=== PATIENT | male | born 1980 | race Hispanic/Latino ===

== ENCOUNTER 2022-10-12 10:54 | Inpatient (IN) | payer OTHER ==
[~2022-10-12] VITALS: Ht 167.6 cm; Wt 138.9 kg
[2022-10-12 11:16] LABS: APPEARANCE,URINE CLOUDY (CLEAR); BILIRUBIN,URINE SMALL mg/dL (NEGATIVE); COLOR,URINE AMBER (YELLOW); GLUCOSE, URINE (UA) NEGATIVE (NEGATIVE); KETONES,URINE 5 mg/dL (NEGATIVE); LEUKOCYTE ESTERASE ,URINE SMALL Leu/uL (NEGATIVE); NITRATE,URINE NEGATIVE (NEGATIVE); OCCULT BLOOD,URINE LARGE (NEGATIVE); PH,URINE 5.5 (5.0-8.0); PROTEIN,URINE >=300 mg/dL (NEGATIVE); UROBILINOGEN,URINE >=8.0 mg/dL (0.2-1.0)
[2022-10-12 11:21] LABS: BASOPHILS # (AUTO) 0.02 K/uL (0.00-0.20); BASOPHILS % (AUTO) 0.1 % (0.0-5.0); HEMATOCRIT 41.9 % (42-54); IMMATURE GRANULOCYTE ABSOLUTE 0.05 K/uL (0-1); LYMPHOCYTES # (AUTO) 0.2 K/uL (1.0-4.8); LYMPHOCYTES % (AUTO) 1.4 % (21.0-51.0); MEAN CORPUSCULAR HEMOGLOBIN 29.3 pg (27.0-33.0); MEAN CORPUSCULAR HGB CONC 34.4 g/dL (32.0-36.0); MEAN CORPUSCULAR VOLUME 85.3 fL (79-99); MONOCYTES # (AUTO) 0.4 K/uL (0.1-1.0); MONOCYTES % (AUTO) 2.7 % (3.0-13.0); NEUTROPHILS % (AUTO) 95.5 % (40.0-77.0); PLATELET COUNT (AUTO) 159 K/uL (130-400); RED BLOOD CELL COUNT(AUTO) 4.91 MIL/uL (4.50-6.20); RED CELL DISTRIBUTION WIDTH 13.1 % (11.0-15.5); WHITE BLOOD COUNT (AUTO) 14.7 K/uL (4.8-10.8)
[2022-10-12 11:23] LABS: ADD UA MICROSCOPIC YES
[2022-10-12 11:25] LABS: SARS-CoV-2, RNA, NAAT NEGATIVE SARS CoV-2 (NEGATIVE)
[2022-10-12 11:30] LABS: CREATININE 2.5 mg/dL (0.5-1.5); POTASSIUM 3.4 mmol/L (3.5-5.1)
[2022-10-12 11:30] LABS: INFLUENZA TYPE A Negative For Type A (NEGATIVE); INFLUENZA TYPE B Negative For Type B (NEGATIVE)
[2022-10-12 11:34] LABS: ALBUMIN 3.3 g/dL (3.5-5.0); BILIRUBIN,TOTAL 1.1 mg/dL (0.2-1.0); TOTAL PROTEIN, SERUM 7.4 g/dL (6.0-8.3)
[2022-10-12 11:47] LABS: BACTERIA,URINE Moderate /HPF (None Seen); SQUAMOUS EPITHELIAL CELL,UR Few /HPF (0-2); WBC,URINE 51-100 /HPF (0-1)
[2022-10-12] MEDS: 0.9%NACL 1000ML 1,000 ML IV SCH ×3 (12:21→21:19)
[2022-10-12] MEDS ORDERED: CEFTRIAXONE 2GM VIAL IVPB ONE (12:30)
[2022-10-12] MEDS ORDERED: DiphenhydrAMINE HCL 50 MG/ML VIAL IV PRN (13:30)
[2022-10-12] MEDS ORDERED: MAG/ALUM/SIMETH 30 ML UDCUP PO PRN (13:30)
[2022-10-12] MEDS ORDERED: ONDANSETRON 4MG INJ IV PRN (13:30)
[2022-10-12] MEDS ORDERED: HYDROMORPHONE 1 MG INJ IV PRN (13:30)
[2022-10-12] MEDS ORDERED: MAGNESIUM 2GM PREMIX 50ML 50 ML IV PRN (13:30)
[2022-10-12] MEDS ORDERED: POTASSIUM CHLORIDE 20MEQ/100ML 100 ML IV PRN (13:30)
[2022-10-12] MEDS ORDERED: HYDROCODONE/ACETAMINOPHEN 5/325 MG TAB PO PRN ×2 (13:30)
[2022-10-12] MEDS ORDERED: GUAIFENESIN-DM 200/20 MG 10 ML PO PRN (13:30)
[2022-10-12] MEDS ORDERED: LACTULOSE 20 GM/30 ML UDCUP PO PRN (13:30)
[2022-10-12] MEDS ORDERED: NITROGLYCERIN 0.4 MG SL TAB SL PRN (13:30)
[2022-10-12] MEDS ORDERED: ACETAMINOPHEN 325 MG TAB PO PRN ×2 (13:30)
[2022-10-12] MEDS ORDERED: KCL 20 MEQ ERTAB PO PRN (13:30)
[2022-10-12] MEDS ORDERED: DIPHENHYDRAMINE HCL 25 MG CAPSULE PO PRN (13:30)
[2022-10-12] MEDS ORDERED: CEFTRIAXONE 1G VIAL IV SCH (13:30)
[2022-10-12] MEDS ORDERED: POTASSIUM CHLORIDE 10% ELIXIR 20 MEQ/15 ML UDCUP PO PRN (13:30)
[2022-10-12] MEDS: HEPARIN 5,000 UNIT VIAL SQ SCH ×2 (14:12→20:39)
[2022-10-12 14:16] LABS: AMPHET/METH SCREEN,URINE NEGATIVE (NEGATIVE); BARBITURATE SCREEN, URINE NEGATIVE (NEGATIVE); BENZODIAZEPINES SCREEN,URINE NEGATIVE (NEGATIVE); CANNABINOID SCREEN,URINE NEGATIVE (NEGATIVE); COCAINE SCREEN,URINE NEGATIVE (NEGATIVE); OPIATE SCREEN,URINE NEGATIVE (NEGATIVE); PHENCYCLIDINE SCREEN,URINE NEGATIVE (NEGATIVE)
[2022-10-12 14:29] LABS: THYROID STIMULATING HORMONE 0.73 uIU/mL (0.36-3.74)
[2022-10-12] MEDS: FAMOTIDINE 20MG TAB PO SCH (19:32)
[2022-10-12] MEDS: FAMOTIDINE 20MG VIAL IV SCH (20:32)
[2022-10-12 22:15] VITALS: BP 108/66; PULSE 87; RESP 20; O2SAT 97
[2022-10-13] VITALS (7 sets, daily range): BP systolic 111–124; BP diastolic 61–73; PULSE 73–83; RESP 16–20; O2SAT 97
[2022-10-13] MEDS: 0.9%NACL 1000ML 1,000 ML IV SCH ×4 (03:29→22:50)
[2022-10-13 05:49] LABS: BASOPHILS # (AUTO) 0.01 K/uL (0.00-0.20); BASOPHILS % (AUTO) 0.1 % (0.0-5.0); EOSINOPHILS # (AUTO) 0.02 K/uL (0.00-0.70); EOSINOPHILS % (AUTO) 0.2 % (0.0-8.0); HEMATOCRIT 38.5 % (42-54); IMMATURE GRANULOCYTE ABSOLUTE 0.03 K/uL (0-1); LYMPHOCYTES # (AUTO) 0.5 K/uL (1.0-4.8); LYMPHOCYTES % (AUTO) 5.3 % (21.0-51.0); MEAN CORPUSCULAR HGB CONC 33.2 g/dL (32.0-36.0); MEAN CORPUSCULAR VOLUME 87.3 fL (79-99); MONOCYTES # (AUTO) 0.9 K/uL (0.1-1.0); MONOCYTES % (AUTO) 9.2 % (3.0-13.0); NEUTROPHILS # (AUTO) 8.4 K/uL (1.8-7.7); NEUTROPHILS % (AUTO) 84.9 % (40.0-77.0); PLATELET COUNT (AUTO) 142 K/uL (130-400); RED BLOOD CELL COUNT(AUTO) 4.41 MIL/uL (4.50-6.20); RED CELL DISTRIBUTION WIDTH 13.4 % (11.0-15.5); WHITE BLOOD COUNT (AUTO) 9.9 K/uL (4.8-10.8)
[2022-10-13 06:10] LABS: CREATININE 2.1 mg/dL (0.5-1.5); MAGNESIUM 1.6 mg/dL (1.80-2.40); PHOSPHORUS 2.7 mg/dL (2.5-4.9); POTASSIUM 4.1 mmol/L (3.5-5.1)
[2022-10-13 06:24] LABS: % IRON SATURATION 8.1 % (30-44)
[2022-10-13] MEDS ORDERED: MEROPENEM 500 MG in 0.9%NACL 100ML 100 ML IV SCH (07:00)
[2022-10-13] MEDS: IRON SUCROSE COMPLEX 300 MG in 0.9% NACL 250ML 250 ML IV SCH (09:17)
[2022-10-13] MEDS: HEPARIN 5,000 UNIT VIAL SQ SCH ×3 (09:24→22:13)
[2022-10-13] MEDS ORDERED: COMPOUND IV MISC 1 EACH IVSOLN MISC PRN (12:00)
[2022-10-13] MEDS: ZOSYN 3.375GM +NS 50ML IVPB SCH ×2 (12:16→22:16)
[2022-10-13] MEDS: FAMOTIDINE 20MG VIAL IV SCH (21:00)
[2022-10-13] MEDS: FAMOTIDINE 20MG TAB PO SCH (22:12)
[2022-10-14] VITALS (7 sets, daily range): BP systolic 126–152; BP diastolic 69–89; PULSE 72–85; RESP 17–20; O2SAT 98–99
[2022-10-14 05:32] LABS: BASOPHILS # (AUTO) 0.03 K/uL (0.00-0.20); BASOPHILS % (AUTO) 0.5 % (0.0-5.0); EOSINOPHILS # (AUTO) 0.04 K/uL (0.00-0.70); EOSINOPHILS % (AUTO) 0.6 % (0.0-8.0); HEMATOCRIT 39.4 % (42-54); IMMATURE GRANULOCYTE ABSOLUTE 0.05 K/uL (0-1); LYMPHOCYTES # (AUTO) 0.8 K/uL (1.0-4.8); LYMPHOCYTES % (AUTO) 11.5 % (21.0-51.0); MEAN CORPUSCULAR HEMOGLOBIN 29.1 pg (27.0-33.0); MEAN CORPUSCULAR HGB CONC 32.5 g/dL (32.0-36.0); MEAN CORPUSCULAR VOLUME 89.5 fL (79-99); MONOCYTES # (AUTO) 0.8 K/uL (0.1-1.0); MONOCYTES % (AUTO) 12.4 % (3.0-13.0); NEUTROPHILS # (AUTO) 4.8 K/uL (1.8-7.7); NEUTROPHILS % (AUTO) 74.2 % (40.0-77.0); PLATELET COUNT (AUTO) 133 K/uL (130-400); RED CELL DISTRIBUTION WIDTH 13.5 % (11.0-15.5); WHITE BLOOD COUNT (AUTO) 6.5 K/uL (4.8-10.8)
[2022-10-14 05:45] LABS: CREATININE 1.6 mg/dL (0.5-1.5); PHOSPHORUS 2.2 mg/dL (2.5-4.9); POTASSIUM 4.1 mmol/L (3.5-5.1)
[2022-10-14] MEDS: 0.9%NACL 1000ML 1,000 ML IV SCH ×2 (05:45→21:39)
[2022-10-14] MEDS: ZOSYN 3.375GM +NS 50ML IVPB SCH ×3 (05:46→17:40)
[2022-10-14] MEDS: IRON SUCROSE COMPLEX 300 MG in 0.9% NACL 250ML 250 ML IV SCH (09:55)
[2022-10-14] MEDS: NEUTRA-PHOS PACKET 1 EACH PO SCH (10:02)
[2022-10-14] MEDS: HEPARIN 5,000 UNIT VIAL SQ SCH ×3 (10:08→21:38)
[2022-10-14] MEDS: FAMOTIDINE 20MG VIAL IV SCH (21:00)
[2022-10-14] MEDS: FAMOTIDINE 20MG TAB PO SCH (21:37)
[2022-10-15] VITALS (7 sets, daily range): BP systolic 135–155; BP diastolic 75–97; PULSE 73–95; RESP 16–20; O2SAT 96
[2022-10-15] MEDS: ZOSYN 3.375GM +NS 50ML IVPB SCH ×2 (01:55→09:35)
[2022-10-15 04:59] LABS: BASOPHILS # (AUTO) 0.03 K/uL (0.00-0.20); BASOPHILS % (AUTO) 0.3 % (0.0-5.0); EOSINOPHILS # (AUTO) 0.08 K/uL (0.00-0.70); EOSINOPHILS % (AUTO) 0.8 % (0.0-8.0); IMMATURE GRANULOCYTE ABSOLUTE 0.11 K/uL (0-1); LYMPHOCYTES # (AUTO) 1.1 K/uL (1.0-4.8); LYMPHOCYTES % (AUTO) 11.1 % (21.0-51.0); MEAN CORPUSCULAR HEMOGLOBIN 29.1 pg (27.0-33.0); MEAN CORPUSCULAR HGB CONC 32.5 g/dL (32.0-36.0); MEAN CORPUSCULAR VOLUME 89.5 fL (79-99); MONOCYTES # (AUTO) 1.1 K/uL (0.1-1.0); MONOCYTES % (AUTO) 10.7 % (3.0-13.0); NEUTROPHILS # (AUTO) 7.5 K/uL (1.8-7.7); PLATELET COUNT (AUTO) 145 K/uL (130-400); RED BLOOD CELL COUNT(AUTO) 4.47 MIL/uL (4.50-6.20); RED CELL DISTRIBUTION WIDTH 13.4 % (11.0-15.5); WHITE BLOOD COUNT (AUTO) 9.9 K/uL (4.8-10.8)
[2022-10-15 05:10] LABS: CREATININE 1.4 mg/dL (0.5-1.5); POTASSIUM 3.6 mmol/L (3.5-5.1)
[2022-10-15] MEDS: NEUTRA-PHOS PACKET 1 EACH PO SCH (09:30)
[2022-10-15] MEDS: IRON SUCROSE COMPLEX 300 MG in 0.9% NACL 250ML 250 ML IV SCH (09:36)
[2022-10-15] MEDS: HEPARIN 5,000 UNIT VIAL SQ SCH ×3 (09:37→20:57)
[2022-10-15] MEDS ORDERED: GADOTERATE MEGLUMINE 10 MMOL/20 ML VIAL IV ONE (11:17)
[2022-10-15] MEDS ORDERED: CEFTRIAXONE 2GM VIAL IVPB SCH (11:30)
[2022-10-15] MEDS ORDERED: LORAZEPAM 2 MG/ML 1 ML VIAL IVP STA (11:46)
[2022-10-15] MEDS: FAMOTIDINE 20MG TAB PO SCH (20:57)
[2022-10-15] MEDS: 0.9%NACL 1000ML 1,000 ML IV SCH (21:00)
[2022-10-15] MEDS: FAMOTIDINE 20MG VIAL IV SCH (21:00)
[2022-10-16 04:00] VITALS: BP 145/90; PULSE 73; RESP 19
[2022-10-16 05:02] LABS: BASOPHILS # (AUTO) 0.05 K/uL (0.00-0.20); BASOPHILS % (AUTO) 0.6 % (0.0-5.0); EOSINOPHILS % (AUTO) 2.2 % (0.0-8.0); IMMATURE GRANULOCYTE ABSOLUTE 0.31 K/uL (0-1); LYMPHOCYTES # (AUTO) 1.5 K/uL (1.0-4.8); LYMPHOCYTES % (AUTO) 16.6 % (21.0-51.0); MEAN CORPUSCULAR HEMOGLOBIN 29.3 pg (27.0-33.0); MEAN CORPUSCULAR HGB CONC 32.8 g/dL (32.0-36.0); MEAN CORPUSCULAR VOLUME 89.2 fL (79-99); MONOCYTES # (AUTO) 1.1 K/uL (0.1-1.0); MONOCYTES % (AUTO) 11.6 % (3.0-13.0); NEUTROPHILS # (AUTO) 5.9 K/uL (1.8-7.7); NEUTROPHILS % (AUTO) 65.6 % (40.0-77.0); PLATELET COUNT (AUTO) 154 K/uL (130-400); RED BLOOD CELL COUNT(AUTO) 4.37 MIL/uL (4.50-6.20); RED CELL DISTRIBUTION WIDTH 13.2 % (11.0-15.5)
[2022-10-16 05:26] LABS: CREATININE 1.2 mg/dL (0.5-1.5); MAGNESIUM 1.2 mg/dL (1.80-2.40); PHOSPHORUS 2.1 mg/dL (2.5-4.9); POTASSIUM 3.9 mmol/L (3.5-5.1)
[2022-10-16 08:00] VITALS: BP 136/76; PULSE 82; RESP 16
[2022-10-16 09:00] VITALS: O2SAT 99
[2022-10-16] MEDS: NEUTRA-PHOS PACKET 1 EACH PO SCH (09:30)
[2022-10-16] MEDS: HEPARIN 5,000 UNIT VIAL SQ SCH ×3 (11:53→20:46)
[2022-10-16 12:00] VITALS: BP 140/86; PULSE 71; RESP 16
[2022-10-16 16:00] VITALS: BP 146/79; PULSE 72; RESP 16
[2022-10-16 20:00] VITALS: BP 161/90; PULSE 77; RESP 20
[2022-10-16] MEDS: FAMOTIDINE 20MG TAB PO SCH (20:38)
[2022-10-16] MEDS: FAMOTIDINE 20MG VIAL IV SCH (20:41)
[2022-10-17] VITALS (8 sets, daily range): BP systolic 140–165; BP diastolic 75–94; PULSE 62–98; RESP 17–19; O2SAT 98
[2022-10-17 05:39] LABS: BASOPHILS # (AUTO) 0.07 K/uL (0.00-0.20); BASOPHILS % (AUTO) 0.7 % (0.0-5.0); EOSINOPHILS # (AUTO) 0.27 K/uL (0.00-0.70); EOSINOPHILS % (AUTO) 2.5 % (0.0-8.0); HEMATOCRIT 39.2 % (42-54); IMMATURE GRANULOCYTE ABSOLUTE 0.61 K/uL (0-1); LYMPHOCYTES # (AUTO) 2.2 K/uL (1.0-4.8); LYMPHOCYTES % (AUTO) 20.6 % (21.0-51.0); MEAN CORPUSCULAR HEMOGLOBIN 29.2 pg (27.0-33.0); MEAN CORPUSCULAR HGB CONC 32.9 g/dL (32.0-36.0); MEAN CORPUSCULAR VOLUME 88.7 fL (79-99); MONOCYTES % (AUTO) 9.5 % (3.0-13.0); NEUTROPHILS # (AUTO) 6.5 K/uL (1.8-7.7); PLATELET COUNT (AUTO) 191 K/uL (130-400); RED BLOOD CELL COUNT(AUTO) 4.42 MIL/uL (4.50-6.20); RED CELL DISTRIBUTION WIDTH 13.2 % (11.0-15.5); WHITE BLOOD COUNT (AUTO) 10.7 K/uL (4.8-10.8)
[2022-10-17 05:45] LABS: CREATININE 1.3 mg/dL (0.5-1.5); POTASSIUM 3.6 mmol/L (3.5-5.1)
[2022-10-17 05:49] LABS: PHOSPHORUS 2.2 mg/dL (2.5-4.9)
[2022-10-17] MEDS: CINACALCET 30 MG TAB PO SCH (10:52)
[2022-10-17] MEDS: NEUTRA-PHOS PACKET 1 EACH PO SCH (10:59)
[2022-10-17] MEDS: HEPARIN 5,000 UNIT VIAL SQ SCH ×3 (11:01→20:43)
[2022-10-17] MEDS: FAMOTIDINE 20MG VIAL IV SCH (20:40)
[2022-10-17] MEDS: FAMOTIDINE 20MG TAB PO SCH (20:40)
[2022-10-17] MEDS ORDERED: IOHEXOL-350 75 ML VIAL IV ONE (22:31)
[2022-10-18 04:00] VITALS: BP 148/74; PULSE 64; RESP 20
[2022-10-18 06:41] LABS: BASOPHILS # (AUTO) 0.07 K/uL (0.00-0.20); BASOPHILS % (AUTO) 0.6 % (0.0-5.0); EOSINOPHILS % (AUTO) 1.8 % (0.0-8.0); HEMATOCRIT 38.8 % (42-54); IMMATURE GRANULOCYTE ABSOLUTE 0.65 K/uL (0-1); LYMPHOCYTES # (AUTO) 2.4 K/uL (1.0-4.8); LYMPHOCYTES % (AUTO) 21.4 % (21.0-51.0); MEAN CORPUSCULAR HEMOGLOBIN 28.9 pg (27.0-33.0); MEAN CORPUSCULAR VOLUME 87.6 fL (79-99); MONOCYTES # (AUTO) 0.8 K/uL (0.1-1.0); MONOCYTES % (AUTO) 7.4 % (3.0-13.0); NEUTROPHILS # (AUTO) 6.9 K/uL (1.8-7.7); NEUTROPHILS % (AUTO) 62.9 % (40.0-77.0); PLATELET COUNT (AUTO) 214 K/uL (130-400); RED BLOOD CELL COUNT(AUTO) 4.43 MIL/uL (4.50-6.20); RED CELL DISTRIBUTION WIDTH 13.1 % (11.0-15.5)
[2022-10-18 07:27] LABS: ALBUMIN 2.9 g/dL (3.5-5.0); BILIRUBIN,TOTAL 0.4 mg/dL (0.2-1.0); CREATININE 1.3 mg/dL (0.5-1.5); MAGNESIUM 1.2 mg/dL (1.80-2.40); POTASSIUM 3.8 mmol/L (3.5-5.1); TOTAL PROTEIN, SERUM 6.8 g/dL (6.0-8.3)
[2022-10-18 08:00] VITALS: O2SAT 98
[2022-10-18 08:05] VITALS: BP 164/77; PULSE 70; RESP 18
[2022-10-18] MEDS ORDERED: CINA30 PO (08:14)
[2022-10-18] MEDS ORDERED: MAGNESIUM 2GM PREMIX 50ML 50 ML IV SCH (08:30)
[2022-10-18] MEDS ORDERED: CINACALCET 30 MG TAB PO SCH (09:00)
[2022-10-18] MEDS ORDERED: LISINOPRIL 10 MG TABLET PO SCH (09:00)
[2022-10-18] MEDS: HEPARIN 5,000 UNIT VIAL SQ SCH (09:40)
[2022-10-18] MEDS: CINACALCET 30 MG TAB PO SCH (09:46)
[2022-10-18] MEDS: NEUTRA-PHOS PACKET 1 EACH PO SCH (09:47)
[2022-10-18] MEDS ORDERED: AMLO-257 PO (11:46)
[2022-10-18] MEDS ORDERED: LEVO750T39 PO (11:53)
[2022-10-18 11:58] VITALS: BP 167/85; PULSE 71; RESP 17
== END 2022-10-18 14:15 | disposition home or self-care (01) | DRG 872 ==
LOC: EDH 10:54 → EDHIP 10:55 → 3AH 22:18
PROVIDERS: ADMIT Internal Medicine; ATTEND Internal Medicine
DX: A41.89 Other specified sepsis (principal); N17.9 Acute kidney failure, unspecified; E87.1 Hypo-osmolality and hyponatremia; N12 Tubulo-interstitial nephritis, not specified as acute or chronic; Z68.42 Body mass index [BMI] 45.0-49.9, adult; Z20.822 Contact with and (suspected) exposure to COVID-19; E87.6 Hypokalemia; E66.01 Morbid (severe) obesity due to excess calories; E11.22 Type 2 diabetes mellitus with diabetic chronic kidney disease; E21.0 Primary hyperparathyroidism; E83.52 Hypercalcemia; I12.9 Hypertensive chronic kidney disease with stage 1 through stage 4 chronic kidney disease, or unspecified chronic kidney disease; N18.9 Chronic kidney disease, unspecified; Z86.011 Personal history of benign neoplasm of the brain; Z87.442 Personal history of urinary calculi
CPT/HCPCS: 36415; 70496; 70553; 71045; 74176; 76536; 80048; 80053; 80305; 81001; 83540; 83550; 83605; 83735; 83970; 84100; 84146; 84443; 85025; 86701; 87040; 87077; 87088; 87186; 87390; 87635; 87804; C9803; G0378; J0696; J1644; J1756; J2060; J2185; J2543; J3475; J3490; J7030; J7050; Q9967; A9575